=== PATIENT | male | born 1935 | race Caucasian/White ===

== ENCOUNTER 2017-06-20 12:34 | Emergency (ER) | payer MEDICARE, BC ==
[2017-06-20 12:44] VITALS: BP 134/92
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
== END 2017-06-20 13:34 | disposition home or self-care (01) ==
LOC: JD.ED 12:34
DX: S51.811A Laceration without foreign body of right forearm, initial encounter (principal); I11.0 Hypertensive heart disease with heart failure; I50.9 Heart failure, unspecified; E78.00 Pure hypercholesterolemia, unspecified; I25.2 Old myocardial infarction; I25.810 Atherosclerosis of coronary artery bypass graft(s) without angina pectoris; W22.8XXA Striking against or struck by other objects, initial encounter; Z79.82 Long term (current) use of aspirin; Z79.899 Other long term (current) drug therapy
CPT/HCPCS: 99283

== ENCOUNTER 2017-06-22 18:19 | Emergency (ER) | payer MEDICARE, BC ==
[2017-06-22 18:40] VITALS: BP 152/86
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
--- NOTE | 2017-06-23 10:19 | CT ---
Head CT Technique: Multiple axial sections through the brain were obtained. Intravenous contrast was not utilized. Comparison: Prior head CT study of 09/28/15. Findings: Ventricles along the basal cisterns and sulci over the convexities are moderately prominent. Diminished density noted within the periventricular and subcortical white matter which is compatible with small vessel ischemic demyelination change. Atherosclerotic calcification is seen within the vertebral vessels and within the carotid siphon. No evidence of intracranial hemorrhage. No midline shift or mass effect is seen. Bone window setting show no acute calvarial abnormality. Visualized sinuses are clear. Impression: 1. Senescent change as noted above. 2. No acute intracranial abnormality is identified. Diagnostic code #2 I agree with preliminary report from [facility], finalized at 06/22/17, 10:12 PM Central Time
--- NOTE | 2017-06-23 10:19 | CR ---
Left shoulder: Three views of the left shoulder were obtained. Comparison: No prior shoulder exam. Bilateral superior and inferior spurring is noted within the acromioclavicular joint with mild adjacent soft tissue calcification. Glenohumeral joint appears within normal limits. No fracture or other bony abnormality is seen. Previous sternotomy incidentally noted. Atherosclerotic change is seen within the aorta. Degenerative spurring seen within the visualized thoracic spine. Impression: 1. Degenerative change as noted above. 2. Nothing acute is identified. Diagnostic code #2
--- NOTE | 2017-06-23 10:19 | CT ---
CT cervical spine Technique: Multiple axial sections were obtained from above C1 inferiorly to the top of T2. Reconstructed sagittal and coronal images were reviewed. Comparison: No prior cervical spine exam. Findings: Diffuse posterior disc bulging with calcification seen at C3-C4, C4-C5, C5-C6 and C6-C7. Mild disc space narrowing is seen posteriorly at C3-C4 and C4-C5. Diffuse disc space narrowing is noted at C5-C6. Mild scattered endplate osteophytes are seen. Diffuse degenerative change is seen within the apophyseal joints. Calcification is seen within the posterior transverse ligament at the C1-C2 articulation. Mild right sided neural foraminal stenosis is noted at C2-C3. Moderate right sided neural foraminal stenosis is noted at C3-C4 with mild left-sided neural foraminal stenosis at C3-C4. Moderate bilateral neural foraminal stenosis noted at C4-C5 and C5-C6. Other neural foramina are patent. No bony central canal stenosis is seen. Incidental ligamentum nuchal calcification is seen. No fracture is seen. Degenerative change is seen within the uncovertebral joints at C3-C4, C4-C5 and C5-C6. Impression: 1. Diffuse degenerative change. 2. Nothing acute is appreciated on CT study of the cervical spine. Diagnostic code #2 I agree with preliminary report from [facility], finalized at 06/22/17, 10:11 PM Central Time
== END 2017-06-22 21:50 | disposition home or self-care (01) ==
LOC: JD.ED 18:19
DX: S16.1XXA Strain of muscle, fascia and tendon at neck level, initial encounter (principal); S80.12XA Contusion of left lower leg, initial encounter; M25.512 Pain in left shoulder; I11.0 Hypertensive heart disease with heart failure; I50.9 Heart failure, unspecified; I25.2 Old myocardial infarction; Z79.01 Long term (current) use of anticoagulants; Z79.899 Other long term (current) drug therapy; Z79.82 Long term (current) use of aspirin; X58.XXXA Exposure to other specified factors, initial encounter
CPT/HCPCS: 36415; 70450; 70450-26; 72125; 72125-26; 73030-26-LT; 73030-LT; 85610; 99283; 99284-25

== ENCOUNTER 2018-07-05 03:38 | Observation (INO) | payer MEDICARE, BC ==
--- NOTE | 2018-07-05 04:08 | EDM.PDOC ---
ED HPI GENERAL MEDICAL PROBLEM - General Chief Complaint: Neurological Problem Stated Complaint: AMBULANCE Time Seen by Provider: 07/05/18 03:49 Source of Information: Reports: Patient, Family ( + son), RN Notes Reviewed History Limitations: Reports: Altered Mental Status - History of Present Illness INITIAL COMMENTS - FREE TEXT/NARRATIVE: According to the patient's , the patient went to bed around 21:30, and at that time was at his neurologic baseline. The patient has a history of dementia , with symptoms worse in the evening. The patient's states that she heard the patient fall onto the floor around 02:30 this morning, when she went to check on him, he was confused, repeatedly asking where he was. Here in the ED, he is hemodynamically stable, but repeatedly saying that he needs to use the restroom "real bad". He has some difficulty understanding some commands, but is able to cooperate with the majority of a neurologic exam. According to the patient's , the patient has not recently complained of fever, chills, cough, chest pain, shortness of breath, nausea, vomiting, constipation, diarrhea, or abdominal pain. The patient's PCP is Dr. Suresh Arnold. - Related Data Allergies Allergy/AdvReac Type Severity Reaction Status Date / Time No Known Allergies Allergy Verified 07/05/18 03:52 Home Meds: Home Meds Lisinopril [Zestril] 20 mg PO DAILY 07/20/13 [History] Potassium Chloride 20 meq PO BID 07/20/13 [History] atorvaSTATin Calcium [Atorvastatin Calcium] 40 mg PO BEDTIME 07/20/13 [History] azaTHIOprine [Imuran] 150 mg PO DAILY 07/20/13 [History] cloNIDine [Catapres TTS-2] 0.2 mg TOP ASDIRECTED 07/20/13 [History] cycloSPORINE [SandIMMUNE] 0.8 ml PO Q12H 07/20/13 [History] Warfarin [Coumadin] 10 mg PO DAILY 06/22/17 [History] Ferrous Sulfate [Slow Release Iron] 160 mg PO DAILY 07/05/18 [History] Furosemide 40 mg PO DAILY 07/05/18 [History] hydroCHLOROthiazide [Hydrochlorothiazide] 25 mg PO DAILY 07/05/18 [History] traMADol [Ultram] 50 mg PO QID PRN 07/05/18 [History] valACYclovir HCl [valACYclovir] 500 mg PO BID 07/05/18 [History] Past Medical History HEENT History: Reports: Hard of Hearing, Impaired Vision Other HEENT History: bilateral hearing aides, wears eyeglasses Cardiovascular History: Reports: High Cholesterol, Hypertension, Other (See Below) ([place] heart with CAD/[place], and CHF, status post heart transplant) Musculoskeletal History: Reports: Back Pain, Chronic, Osteoporosis Neurological History: Reports: 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), Other (See Below) (Dementia) Immunologic History: Reports: Immunosuppression, Solid Organ Transplant (heart) Oncologic (Cancer) History: Reports: Basal Cell Carcinoma, Breast, Prostate ( metastatic, s/p radiation seeding, RTx), Squamous Cell Carcinoma Dermatologic History: Reports: Other (See Below) Other Dermatologic History: skin CA - Infectious Disease History Infectious Disease History: Reports: Chicken Pox, Measles, Mumps, Rheumatic Fever, Shingles (April 2018) - Past Surgical History HEENT Surgical History: Reports: Cataract Surgery, Tonsillectomy Cardiovascular Surgical History: Reports: Coronary Artery Bypass (x 4 vessel, x 2, on [place] heart), Other (See Below) (Heart transplant 1996) GI Surgical History: Reports: Appendectomy, Cholecystectomy, Colonoscopy Musculoskeletal Surgical History: Reports: Knee Replacement (bilateral) Oncologic Surgical History: Reports: Other (See Below) (Prostate seeding) Dermatological Surgical History: Reports: Skin Biopsy Social & Family History - Tobacco Use Packs/Tins Daily: 2 Month/Year Tobacco Last Used: Quit 1968 - Caffeine Use Caffeine Use: Reports: Coffee, Soda - Alcohol Use Alcohol Use History: No - Recreational Drug Use Recreational Drug Use: No - Living Situation & Occupation Living situation: Reports: , with Spouse Occupation: Retired ED ROS GENERAL - Review of Systems Review Of Systems: ROS reveals no pertinent complaints other than HPI. - Physical Exam Exam: See Below Exam Limited By: No Limitations General Appearance: Alert, No Apparent Distress Eye Exam: Bilateral Eye: EOMI, Normal Inspection Ears: Normal External Exam, Hearing Loss Nose: Normal Inspection Throat/Mouth: Normal Inspection, Normal Lips, No Airway Compromise, Other ( Halitosis) Head Exam: Atraumatic, Normocephalic Neck: Normal Inspection, Full Range of Motion Respiratory/Chest: No Respiratory Distress, Lungs Clear, Normal Breath Sounds, No Accessory Muscle Use Cardiovascular: Normal Peripheral Pulses, Regular Rate, Rhythm, No Edema, No Gallop, No JVD, No Murmur, No Rub GI/Abdominal: Normal Bowel Sounds, Soft, No Organomegaly, No Distention, No Abnormal Bruit, No Mass, Tender (Suprapubic only. Nontender elsewhere.) (Male) Exam: Deferred Rectal (Males) Exam: Deferred Neuro Exam (Abbreviated): CN II-XII Intact, No Motor/Sensory Deficits, Confused Back Exam: Normal Inspection, Full Range of Motion, NT Extremities: Normal Inspection, Normal Range of Motion, No Pedal Edema, Normal Capillary Refill Skin Exam: Warm, Dry, Intact, Normal Color, No Rash EKG INTERPRETATION EKG Date: 07/05/18 Time: 03:47 Rhythm: NSR Rate (Beats/Min): 69 Lane: Normal P-Wave: Present QRS: Normal (Late transition) ST-T: Normal QT: Normal Comparison: No Change (from 02/06/2018, which was interpreted as A-fib, but is in fact NSR) Course - Vital Signs Last Recorded V/S: Last Vital Signs Temp 36.2 C 07/05/18 03:46 Pulse 68 07/05/18 03:46 Resp 21 H 07/05/18 03:46 BP 149/92 H 07/05/18 03:46 Pulse Ox 98 07/05/18 03:46 - Orders/Labs/Meds Orders: Active Orders 24 hr Category Date Time Status Admission Status [Patient Status] [ADT] Routine ADT 07/05/18 06:01 Active EKG Documentation Completion [RC] STAT Care 07/05/18 04:00 Active Chest 1V Frontal [CR] Stat Exams 07/05/18 04:00 Taken Head wo Cont [CT] Stat Exams 07/05/18 05:34 Taken CULTURE BLOOD [BC] Stat Lab 07/05/18 04:20 Received CULTURE BLOOD [BC] Stat Lab 07/05/18 04:28 Received Blood Culture x2 Reflex Set [OM.PC] Stat Oth 07/05/18 04:00 Ordered Labs: Laboratory Tests 07/05/18 07/05/18 07/05/18 Range/Units 04:00 04:10 04:20 WBC 3.55 L (4.23-9.07) K/mm3 RBC 3.47 L (4.63-6.08) M/mm3 Hgb 10.5 L (13.7-17.5) gm/L Hct 32.7 L (40.1-51.0) % MCV 94.2 H (79.0-92.2) fl MCH 30.3 (25.7-32.2) pg MCHC 32.1 L (32.2-35.5) g/dl RDW Std Deviation 55.6 H (35.1-43.9) fL Plt Count 344 H (163-337) K/mm3 MPV 8.7 L (9.4-12.3) fl Neutrophils % (Manual) 61 H (40-60) % Band Neutrophils % 0 (0-10) % Lymphocytes % (Manual) 25 (20-40) % Atypical Lymphs % 0 % Monocytes % (Manual) 11 H (2-10) % Eosinophils % (Manual) 3 (0.8-7.0) % Basophils % (Manual) 0 L (0.2-1.2) Platelet Estimate Adequate RBC Morph Comment Normal PT (9.5-12.1) SECONDS INR Puncture Site Rt radial ABG pH 7.38 (7.35-7.45) ABG pCO2 38.7 (35.0-45.0) mmHg ABG pO2 73.0 L (80.0-100.0) mmHg ABG HCO3 22.2 (22.0-26.0) meq/L ABG O2 Saturation 94.7 L (96.0-97.0) % ABG Base Excess -2.2 L (-2-2.0) Tom Test Positive A-a Gradient 13 mmHg O2 Delivery Device Room air FiO2 21.00 (21.00-100.00) % Sodium (136-145) mEq/L Potassium (3.5-5.1) mEq/L Chloride (98-107) mEq/L Carbon Dioxide (21-32) mEq/L Anion Gap (5-15) BUN (7-18) mg/dL Creatinine (0.7-1.3) mg/dL Est Cr Clr Drug Dosing mL/min Estimated GFR (MDRD) (>60) mL/min BUN/Creatinine Ratio (14-18) Glucose (83-115) mg/dL Lactic Acid (0.4-2.0) mmol/L Calcium (8.5-10.1) mg/dL Magnesium (1.8-2.4) mg/dl Total Bilirubin (0.2-1.0) mg/dL AST (15-37) U/L ALT (16-63) U/L Alkaline Phosphatase (46-116) U/L Troponin I (0.00-0.056) ng/mL Total Protein (6.4-8.2) g/dl Albumin (3.4-5.0) g/dl Globulin gm/dL Albumin/Globulin Ratio (1-2) Urine Color Yellow (Yellow) Urine Appearance Clear (Clear) Urine pH 6.5 (5.0-8.0) Ur Specific [place] 1.015 (1.005-1.030) Urine Protein Negative (Negative) Urine Glucose (UA) Negative (Negative) Urine Ketones Negative (Negative) Urine Occult Blood Negative (Negative) Urine Nitrite Negative (Negative) Urine Bilirubin Negative (Negative) Urine Urobilinogen 0.2 (0.2-1.0) Ur Leukocyte Esterase Negative (Negative) Urine RBC 0-5 (0-5) /hpf Urine WBC 0-5 (0-5) /hpf Ur Epithelial Cells 0-5 (0-5) /hpf Urine Bacteria Few (FEW) /hpf Urine Mucus Rare (FEW) /hpf 07/05/18 07/05/18 07/05/18 Range/Units 04:20 04:20 04:20 WBC (4.23-9.07) K/mm3 RBC (4.63-6.08) M/mm3 Hgb (13.7-17.5) gm/L Hct (40.1-51.0) % MCV (79.0-92.2) fl MCH (25.7-32.2) pg MCHC (32.2-35.5) g/dl RDW Std Deviation (35.1-43.9) fL Plt Count (163-337) K/mm3 MPV (9.4-12.3) fl Neutrophils % (Manual) (40-60) % Band Neutrophils % (0-10) % Lymphocytes % (Manual) (20-40) % Atypical Lymphs % % Monocytes % (Manual) (2-10) % Eosinophils % (Manual) (0.8-7.0) % Basophils % (Manual) (0.2-1.2) Platelet Estimate RBC Morph Comment PT 13.7 H D (9.5-12.1) SECONDS INR 1.26 Puncture Site ABG pH (7.35-7.45) ABG pCO2 (35.0-45.0) mmHg ABG pO2 (80.0-100.0) mmHg ABG HCO3 (22.0-26.0) meq/L ABG O2 Saturation (96.0-97.0) % ABG Base Excess (-2-2.0) Tom Test A-a Gradient mmHg O2 Delivery Device FiO2 (21.00-100.00) % Sodium 139 (136-145) mEq/L Potassium 4.2 (3.5-5.1) mEq/L Chloride 106 (98-107) mEq/L Carbon Dioxide 23 (21-32) mEq/L Anion Gap 14.2 (5-15) BUN 35 H (7-18) mg/dL Creatinine 1.5 H (0.7-1.3) mg/dL Est Cr Clr Drug Dosing 30.70 mL/min Estimated GFR (MDRD) 45 (>60) mL/min BUN/Creatinine Ratio 23.3 H (14-18) Glucose 100 (83-115) mg/dL Lactic Acid 0.8 (0.4-2.0) mmol/L Calcium 9.2 (8.5-10.1) mg/dL Magnesium 2.1 (1.8-2.4) mg/dl Total Bilirubin 1.0 (0.2-1.0) mg/dL AST 20 (15-37) U/L ALT 14 L (16-63) U/L Alkaline Phosphatase 51 (46-116) U/L Troponin I < 0.017 (0.00-0.056) ng/mL Total Protein 6.8 (6.4-8.2) g/dl Albumin 3.5 (3.4-5.0) g/dl Globulin 3.3 gm/dL Albumin/Globulin Ratio 1.1 (1-2) Urine Color (Yellow) Urine Appearance (Clear) Urine pH (5.0-8.0) Ur Specific [place] (1.005-1.030) Urine Protein (Negative) Urine Glucose (UA) (Negative) Urine Ketones (Negative) Urine Occult Blood (Negative) Urine Nitrite (Negative) Urine Bilirubin (Negative) Urine Urobilinogen (0.2-1.0) Ur Leukocyte Esterase (Negative) Urine RBC (0-5) /hpf Urine WBC (0-5) /hpf Ur Epithelial Cells (0-5) /hpf Urine Bacteria (FEW) /hpf Urine Mucus (FEW) /hpf - Re-Assessments/Exams Free Text/Narrative Re-Assessment/Exam: 07/05/18 04:03 Although the patient has a history of dementia, he developed relatively sudden onset confusion, yet his neurologic exam here in the ED appears to be intact, indicating a metabolic cause. He repeatedly says that he needs to use the bathroom, by which he seems to mean that he needs to urinate. I anticipate that he has a UTI causing his altered mental status. I have ordered a workup that includes an ECG, a chest x-ray, blood work, an ABG, blood cultures, and, of course, a urinalysis. 07/05/18 04:51 Portable chest radiograph reviewed. The cardiac silhouette is within normal limits. No pulmonary vascular congestion or visible pleural effusions to suggest decompensated CHF. No focal infiltrate. No pneumothorax. Sternotomy wires incidentally noted. Formal read per the Radiologist pending. 07/05/18 05:31 The CBC is remarkable for a WBC count low at 3.55, mild anemia, and mild thrombocytosis. The CMP is remarkable for a BUN/Cr of 35/1.5, and is otherwise unremarkable. The magnesium level is normal. The troponin is undetectably low. The lactic acid is normal. The INR is subtherapeutic at 1.26. The ABG shows no significant acid base disturbance, with normal oxygenation while on supplemental oxygen. The urinalysis is completely normal. Test results discussed with the patient's family. The cause of the patient's confusion is unknown. It could be that his dementia tonight is worse than usual , but it does not appear to be due to an infectious cause. I recommended placement and observation, and they agreed. Case then discussed with Dr. Mcnally at 05:29. He agreed to place the patient into observation. 07/05/18 06:07 CT of the head without contrast is read by [facility] as "No CT evidence for acute intracranial abnormality or significant change since 06/22/17." Departure - Departure Time of Disposition: 05:34 Disposition: Refer to Observation Condition: Good Clinical Impression: Confusion - Discharge Information *PRESCRIPTION DRUG MONITORING PROGRAM REVIEWED*: Not Applicable *COPY OF PRESCRIPTION DRUG MONITORING REPORT IN PATIENT DONNA: Not Applicable Referrals: Suresh Arnold MD [Physician] - - My Orders Last 24 Hours: My Active Orders 07/05/18 04:00 EKG Documentation Completion [RC] STAT Chest 1V Frontal [CR] Stat Blood Culture x2 Reflex Set [OM.PC] Stat 07/05/18 04:20 CULTURE BLOOD [BC] Stat 07/05/18 04:28 CULTURE BLOOD [BC] Stat 07/05/18 05:34 Head wo Cont [CT] Stat 07/05/18 06:01 Admission Status [Patient Status] [ADT] Routine - Assessment/Plan Last 24 Hours: My Active Orders 07/05/18 04:00 EKG Documentation Completion [RC] STAT Chest 1V Frontal [CR] Stat Blood Culture x2 Reflex Set [OM.PC] Stat 07/05/18 04:20 CULTURE BLOOD [BC] Stat 07/05/18 04:28 CULTURE BLOOD [BC] Stat 07/05/18 05:34 Head wo Cont [CT] Stat 07/05/18 06:01 Admission Status [Patient Status] [ADT] Routine
--- NOTE | 2018-07-05 06:49 | PCM.HP ---
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 He does have a history of dementia and she notes his symptoms are usually worse in the evening. Around 2: 30 in the morning she heard a fall and went to check on him. She found him on the ground and unable to get up, confused, and repeatedly asking where he was. In the ED is hemodynamically stable but continues to state he needs to use the restroom "real bad". He does have difficulty understanding some commands but is able to cooperate with the majority of the neurological exam. reports he has not been complaining of any fever, chills, cough, chest pain, short of breath, nausea, vomiting, constipation, diarrhea, or abdominal pain. In the ED temperature 36.2 Celsius. Pulse 68. Respirations 21. Blood pressure slightly elevated 149/92. Obtained noting a sinus rhythm at 69 beats per minutes with late transition QRS. Labs are obtained: WBC is low at 3.55. Hemoglobin low at 10.5. Hematocrit low at 32.7. He is a crescentic. Both are elevated at 344,000. Neutrophils are elevated at 61%. There is no bandemia. ABGs obtain the right radial showing a pH of 7.38. PCO2 38.7. PO2 of 73.0. HCO3 of 22.2. Oxygen saturation of 94.7. PT is 13.7. INR is 1.26. Sodium is 139. Potassium 4.2. Chloride 106. Carbon monoxide 23. Anion gap is 14.2. BUN is high at 35. Creatinine is high at 1.5. EGFR is 45. Glucose is 100. Lactic acid 0.8. Calcium 9.2. Magnesium 2.1. Bilirubin 1.0. AST is 20, ALT 14, alkaline phosphatase 51. Troponin is negative at less than 0.017. Protein is good at 6.8. Albumin 3.5. UA is negative. x-rays obtained and interpreted the ED provider as showing nothing acute. Formal radiologist read is still pending. Head CT without contrast is obtained and interpreted by [facility] as And shows no acute intracranial abnormality or significant change from 07/02/17. 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 His PCP is Dr. Arnold. His Pan Operator is Dr. Lopez. He is subsequently admitted to the floor observation status with telemetry for CVA workup. He is a full code. - Related Data Allergies/Adverse Reactions: Allergies Allergy/AdvReac Type Severity Reaction Status Date / Time No Known Allergies Allergy Verified 07/05/18 03:52 Home Medications: Home Meds Lisinopril [Zestril] 20 mg PO DAILY 07/20/13 [History] Potassium Chloride 20 meq PO BID 07/20/13 [History] atorvaSTATin Calcium [Atorvastatin Calcium] 80 mg PO BEDTIME 07/20/13 [History] azaTHIOprine [Imuran] 125 mg PO DAILY 07/20/13 [History] cloNIDine [Catapres TTS-2] 0.2 mg TOP ASDIRECTED 07/20/13 [History] cycloSPORINE [SandIMMUNE] 0.8 ml PO Q12H 07/20/13 [History] Warfarin [Coumadin] 7.5 mg PO MOWEFR 06/22/17 [History] Ferrous Sulfate [Slow Release Iron] 160 mg PO DAILY 07/05/18 [History] Furosemide 40 mg PO DAILY 07/05/18 [History] Warfarin [Coumadin] 5 mg PO SUTUTHSA 07/05/18 [History] amLODIPine [Norvasc] 5 mg PO BEDTIME 07/05/18 [History] traMADol [Ultram] 50 mg PO QID PRN 07/05/18 [History] valACYclovir HCl [valACYclovir] 500 mg PO BID 07/05/18 [History] Past Medical History HEENT History: Reports: Hard of Hearing, Impaired Vision Other HEENT History: bilateral hearing aides, wears eyeglasses Cardiovascular History: Reports: High Cholesterol, Hypertension, Other (See Below) ([place] heart with CAD/GA, and CHF, status post heart transplant) Genitourinary History: Reports: Prostate Disorder Musculoskeletal History: Reports: Back Pain, Chronic, Osteoporosis Neurological History: Reports: 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), Other (See Below) (Dementia) Psychiatric History: Reports: Dementia Hematologic History: Reports: Iron Deficiency, Other (See Below) Other Hematologic History: Fe infusion 2x a week Immunologic History: Reports: Immunosuppression, Solid Organ Transplant (heart) Oncologic (Cancer) History: Reports: Basal Cell Carcinoma, Breast, Prostate ( metastatic, s/p radiation seeding, RTx), Squamous Cell Carcinoma Dermatologic History: Reports: Other (See Below) Other Dermatologic History: skin CA - Infectious Disease History Infectious Disease History: Reports: Chicken Pox, Measles, Mumps, Rheumatic Fever, Shingles (April 2018) - Past Surgical History HEENT Surgical History: Reports: Cataract Surgery, Tonsillectomy Cardiovascular Surgical History: Reports: Coronary Artery Bypass (x 4 vessel, x 2, on ak chin heart), Other (See Below) (Heart transplant 1996) GI Surgical History: Reports: Appendectomy, Cholecystectomy, Colonoscopy Musculoskeletal Surgical History: Reports: Knee Replacement (bilateral) Oncologic Surgical History: Reports: Other (See Below) (Prostate seeding) Dermatological Surgical History: Reports: Skin Biopsy Social & Family History - Tobacco Use Smoking Status *Q: Former Smoker Packs/Tins Daily: 2 Used Tobacco, but Quit: Yes Month/Year Tobacco Last Used: Quit 1968 - Caffeine Use Caffeine Use: Reports: Coffee, Soda - Recreational Drug Use Recreational Drug Use: No - Living Situation & Occupation Living situation: Reports: , with Spouse Occupation: Retired H&P Review of Systems - Review of Systems: Review Of Systems: See Below General: Reports: No Symptoms. Denies: Fever, Chills, Malaise, Weakness, Fatigue HEENT: Reports: No Symptoms. Denies: Headaches, Sore Throat, Visual Changes Pulmonary: Reports: No Symptoms. Denies: Shortness of Breath, Wheezing, Cough, Sputum Cardiovascular: Reports: No Symptoms. Denies: Edema Gastrointestinal: Reports: No Symptoms. Denies: Abdominal Pain, Constipation, Diarrhea, Nausea, Vomiting Genitourinary: Reports: No Symptoms. Denies: Pain Musculoskeletal: Reports: No Symptoms Skin: Reports: No Symptoms. Denies: Cyanosis Psychiatric: Reports: Confusion (mild - baseline ) Neurological: Reports: No Symptoms Hematologic/Lymphatic: Reports: No Symptoms Immunologic: Reports: No Symptoms Exam - Exam Exam: See Below - Vital Signs Vital Signs: Last Vital Signs Temp 97.2 F 07/05/18 03:46 Pulse 68 07/05/18 03:46 Resp 21 H 07/05/18 03:46 BP 149/92 H 07/05/18 03:46 Pulse Ox 98 07/05/18 03:46 Weight: 140 lb - Exam Quality Assessment: DVT Prophylaxis General: Alert, Oriented (to person and place, confused on time/year/date), Cooperative. No: Mild Distress HEENT: Conjunctiva Clear, EACs Clear, EOMI, Hearing Intact, Mucosa Moist & Klahr , Nares Patent, PERRLA Neck: Supple, Trachea Midline Lungs: Clear to Auscultation, Normal Respiratory Effort Cardiovascular: Regular Rate, Regular Rhythm GI/Abdominal Exam: Normal Bowel Sounds, Soft, Non-Tender, No Organomegaly, No Distention, No Abnormal Bruit (Male) Exam: Deferred Rectal (Males) Exam: Deferred Back Exam: Normal Inspection, Full Range of Motion Extremities: Normal Inspection, Normal Range of Motion, Non-Tender, No Pedal Edema, Normal Capillary Refill Peripheral Pulses: 2+: Radial (L), Radial (R), Dorsalis Pedis (L), Dorsalis Pedis (R) Skin: Warm, Dry, Intact Neurological: Cranial Nerves Intact Neuro Extensive - Mental Status: Alert, Oriented x3, Normal Mood/Affect, Normal Cognition Psychiatric: Alert, Normal Affect, Normal Mood - Patient Data Lab Results Last 24 hrs: Laboratory Results - last 24 hr 07/05/18 07/05/18 07/05/18 Range/Units 04:00 04:10 04:20 WBC 3.55 L (4.23-9.07) K/mm3 RBC 3.47 L (4.63-6.08) M/mm3 Hgb 10.5 L (13.7-17.5) gm/L Hct 32.7 L (40.1-51.0) % MCV 94.2 H (79.0-92.2) fl MCH 30.3 (25.7-32.2) pg MCHC 32.1 L (32.2-35.5) g/dl RDW Std Deviation 55.6 H (35.1-43.9) fL Plt Count 344 H (163-337) K/mm3 MPV 8.7 L (9.4-12.3) fl Neutrophils % (Manual) 61 H (40-60) % Band Neutrophils % 0 (0-10) % Lymphocytes % (Manual) 25 (20-40) % Atypical Lymphs % 0 % Monocytes % (Manual) 11 H (2-10) % Eosinophils % (Manual) 3 (0.8-7.0) % Basophils % (Manual) 0 L (0.2-1.2) Platelet Estimate Adequate RBC Morph Comment Normal PT (9.5-12.1) SECONDS INR Puncture Site Rt radial ABG pH 7.38 (7.35-7.45) ABG pCO2 38.7 (35.0-45.0) mmHg ABG pO2 73.0 L (80.0-100.0) mmHg ABG HCO3 22.2 (22.0-26.0) meq/L ABG O2 Saturation 94.7 L (96.0-97.0) % ABG Base Excess -2.2 L (-2-2.0) Tom Test Positive A-a Gradient 13 mmHg O2 Delivery Device Room air FiO2 21.00 (21.00-100.00) % Sodium (136-145) mEq/L Potassium (3.5-5.1) mEq/L Chloride (98-107) mEq/L Carbon Dioxide (21-32) mEq/L Anion Gap (5-15) BUN (7-18) mg/dL Creatinine (0.7-1.3) mg/dL Est Cr Clr Drug Dosing mL/min Estimated GFR (MDRD) (>60) mL/min BUN/Creatinine Ratio (14-18) Glucose (83-115) mg/dL Lactic Acid (0.4-2.0) mmol/L Calcium (8.5-10.1) mg/dL Magnesium (1.8-2.4) mg/dl Total Bilirubin (0.2-1.0) mg/dL AST (15-37) U/L ALT (16-63) U/L Alkaline Phosphatase (46-116) U/L Troponin I (0.00-0.056) ng/mL Total Protein (6.4-8.2) g/dl Albumin (3.4-5.0) g/dl Globulin gm/dL Albumin/Globulin Ratio (1-2) Urine Color Yellow (Yellow) Urine Appearance Clear (Clear) Urine pH 6.5 (5.0-8.0) Ur Specific [place] 1.015 (1.005-1.030) Urine Protein Negative (Negative) Urine Glucose (UA) Negative (Negative) Urine Ketones Negative (Negative) Urine Occult Blood Negative (Negative) Urine Nitrite Negative (Negative) Urine Bilirubin Negative (Negative) Urine Urobilinogen 0.2 (0.2-1.0) Ur Leukocyte Esterase Negative (Negative) Urine RBC 0-5 (0-5) /hpf Urine WBC 0-5 (0-5) /hpf Ur Epithelial Cells 0-5 (0-5) /hpf Urine Bacteria Few (FEW) /hpf Urine Mucus Rare (FEW) /hpf 07/05/18 07/05/18 07/05/18 Range/Units 04:20 04:20 04:20 WBC (4.23-9.07) K/mm3 RBC (4.63-6.08) M/mm3 Hgb (13.7-17.5) gm/L Hct (40.1-51.0) % MCV (79.0-92.2) fl MCH (25.7-32.2) pg MCHC (32.2-35.5) g/dl RDW Std Deviation (35.1-43.9) fL Plt Count (163-337) K/mm3 MPV (9.4-12.3) fl Neutrophils % (Manual) (40-60) % Band Neutrophils % (0-10) % Lymphocytes % (Manual) (20-40) % Atypical Lymphs % % Monocytes % (Manual) (2-10) % Eosinophils % (Manual) (0.8-7.0) % Basophils % (Manual) (0.2-1.2) Platelet Estimate RBC Morph Comment PT 13.7 H D (9.5-12.1) SECONDS INR 1.26 Puncture Site ABG pH (7.35-7.45) ABG pCO2 (35.0-45.0) mmHg ABG pO2 (80.0-100.0) mmHg ABG HCO3 (22.0-26.0) meq/L ABG O2 Saturation (96.0-97.0) % ABG Base Excess (-2-2.0) Tom Test A-a Gradient mmHg O2 Delivery Device FiO2 (21.00-100.00) % Sodium 139 (136-145) mEq/L Potassium 4.2 (3.5-5.1) mEq/L Chloride 106 (98-107) mEq/L Carbon Dioxide 23 (21-32) mEq/L Anion Gap 14.2 (5-15) BUN 35 H (7-18) mg/dL Creatinine 1.5 H (0.7-1.3) mg/dL Est Cr Clr Drug Dosing 30.70 mL/min Estimated GFR (MDRD) 45 (>60) mL/min BUN/Creatinine Ratio 23.3 H (14-18) Glucose 100 (83-115) mg/dL Lactic Acid 0.8 (0.4-2.0) mmol/L Calcium 9.2 (8.5-10.1) mg/dL Magnesium 2.1 (1.8-2.4) mg/dl Total Bilirubin 1.0 (0.2-1.0) mg/dL AST 20 (15-37) U/L ALT 14 L (16-63) U/L Alkaline Phosphatase 51 (46-116) U/L Troponin I < 0.017 (0.00-0.056) ng/mL Total Protein 6.8 (6.4-8.2) g/dl Albumin 3.5 (3.4-5.0) g/dl Globulin 3.3 gm/dL Albumin/Globulin Ratio 1.1 (1-2) Urine Color (Yellow) Urine Appearance (Clear) Urine pH (5.0-8.0) Ur Specific [place] (1.005-1.030) Urine Protein (Negative) Urine Glucose (UA) (Negative) Urine Ketones (Negative) Urine Occult Blood (Negative) Urine Nitrite (Negative) Urine Bilirubin (Negative) Urine Urobilinogen (0.2-1.0) Ur Leukocyte Esterase (Negative) Urine RBC (0-5) /hpf Urine WBC (0-5) /hpf Ur Epithelial Cells (0-5) /hpf Urine Bacteria (FEW) /hpf Urine Mucus (FEW) /hpf Result Diagrams: 07/05/18 04:20 07/05/18 04:20 - Problem List (1) CVA (cerebral vascular accident) SNOMED Code(s): 423896113 ICD Code: I63.9 - CEREBRAL INFARCTION, UNSPECIFIED Status: Acute Priority : High Current Visit: Yes Qualifiers: CVA mechanism: unspecified Qualified Code(s): I63.9 - Cerebral infarction, unspecified (2) Subtherapeutic international normalized ratio (INR) SNOMED Code(s): 156771882, 368407712 ICD Code: R79.1 - ABNORMAL COAGULATION PROFILE Status: Acute Priority: High Current Visit: Yes (3) Dislocation of right patella SNOMED Code(s): 246732034 ICD Code: S83.004A - UNSPECIFIED DISLOCATION OF RIGHT PATELLA, INITIAL ENCOUNTER Status: Chronic Priority: Medium Current Visit: No Qualifiers: Encounter type: initial encounter Qualified Code(s): S83.004A - Unspecified dislocation of right patella, initial encounter (4) Dementia SNOMED Code(s): 65579652 ICD Code: F03.90 - UNSPECIFIED DEMENTIA WITHOUT BEHAVIORAL DISTURBANCE Status: Chronic Priority: Medium Current Visit: Yes Qualifiers: Dementia type: unspecified type Dementia behavioral disturbance: without behavioral disturbance Qualified Code(s): F03.90 - Unspecified dementia without behavioral disturbance (5) Status post heart transplant Status: Chronic Priority: High Current Visit: Yes (6) HLD (hyperlipidemia) SNOMED Code(s): 32231697 ICD Code: E78.5 - HYPERLIPIDEMIA, UNSPECIFIED Status: Chronic Priority: Medium Current Visit: No Qualifiers: Hyperlipidemia type: unspecified Qualified Code(s): E78.5 - Hyperlipidemia , unspecified (7) HTN (hypertension) SNOMED Code(s): 32332608 ICD Code: I10 - ESSENTIAL (PRIMARY) HYPERTENSION Status: Acute Priority: High Current Visit: Yes Qualifiers: Hypertension type: unspecified Qualified Code(s): I10 - Essential (primary ) hypertension (8) Confusion SNOMED Code(s): 579542003 ICD Code: R41.0 - DISORIENTATION, UNSPECIFIED Status: Resolved Priority: Medium Current Visit: No (9) Prostate cancer SNOMED Code(s): 412717384 ICD Code: C61 - MALIGNANT NEOPLASM OF PROSTATE Status: Chronic Priority: Low Current Visit: No (10) Breast cancer in male SNOMED Code(s): 648030977 ICD Code: C50.929 - MALIGNANT NEOPLASM OF UNSP SITE OF UNSPECIFIED MALE BREAST Status: Chronic Priority: Low Current Visit: No Qualifiers: Breast location: unspecified site of breast Estrogen receptor status: unspecified Laterality: unspecified laterality Qualified Code(s): C50.929 - Malignant neoplasm of unspecified site of unspecified male breast Problem List Initiated/Reviewed/Updated: Yes Orders Last 24hrs: Active Orders 24 hr Category Date Time Status Admission Status [Patient Status] [ADT] Routine ADT 07/05/18 06:01 Active EKG Documentation Completion [RC] STAT Care 07/05/18 04:00 Active Chest 1V Frontal [CR] Stat Exams 07/05/18 04:00 Taken Head wo Cont [CT] Stat Exams 07/05/18 05:34 Taken CULTURE BLOOD [BC] Stat Lab 07/05/18 04:20 Received CULTURE BLOOD [BC] Stat Lab 07/05/18 04:28 Received Blood Culture x2 Reflex Set [OM.PC] Stat Oth 07/05/18 04:00 Ordered Assessment/Plan Comment:: I/P: Acute: CVA -Last known well around [id number] on 07/04/18 -Found by [place]round 0230 after having fallen, very confused and unable to stand up -Hx/o prior CVA in October 2016, 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 Possible early area of infarct within the right parietal cortex. Poorly seen right carotid artery either due to slow flow or occlusion. MR angiogram study recommended of the neck vessels and [place] of [place]ails. * 2. Senescent change as noted above which appear stable from prior head CT. * 3. Incidental sinus findings. -MRA of brain 07/05/18: obtained and pending -Carotid artery US: obtained and pending -Echo: obtained and pending -Lipid panel: Triglycerides 135, total cholesterol 167, LDL 91, HDL 58. -NPO until seen by [employer] -> discontinue -[employer] swallow eval - no concerns, usual diet and thin liquids -Neuro checks QID -NIH score 0 on floor -PT/OT -Permissive HTN Subtherapeutic INR -INR 1.26 - reports he has been taking warfarin as prescribed -Pharmacy to dose warfarin -Daily INR Right knee deformity -Patella appears to be dislocated with bruising -History of frequent falls - reports she believes deformity has been present for around a month -Knee x-rays ordered -Hx/o bilateral TKA -No orthopedic coverage until next Tuesday Chronic: Hard hearing with bilateral hearing aids impaired vision HLD HTN S/P heart transplant in 1996 chronic back pain osteoporosis 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 Plan: Admit to [facility] observation status with tele Other orders as indicated above Home medications as ordered Routine AM labs PT/OT DVT prophylaxis: Home warfarin Code status: Full code; PCP: Dr. Arnold, Pan Operator: Dr. Lopez
[2018-07-05] MEDS ORDERED: Acetaminophen 325 MG Tab PO PRN (06:58)
[2018-07-05] MEDS ORDERED: Bisacodyl 5 MG Tab PO PRN (06:58)
[2018-07-05] MEDS ORDERED: Docusate Sodium 100 MG Cap PO PRN (06:58)
[2018-07-05] MEDS ORDERED: Ondansetron 4 MG/2 ML SDV IV PRN (06:58)
[2018-07-05] MEDS ORDERED: Polyethylene Glycol 3350 Powder 17 GM Packet PO PRN (06:58)
[2018-07-05] MEDS ORDERED: traMADol 50 MG Tab PO PRN (08:29)
[2018-07-05] MEDS ORDERED: VALACYCLOVIR HCL 500 MG PO SCH (09:00)
[2018-07-05] MEDS ORDERED: Non-Formulary Medication 1 Each (Hydrochlorothiazide [Hydrochlorothiazide] 25 MG) PO SCH (09:00)
[2018-07-05] MEDS ORDERED: Non-Formulary Medication 1 Each (Potassium Chloride [Potassium Chloride] 20 MEQ) PO SCH (09:00)
[2018-07-05] MEDS ORDERED: Furosemide 40 MG **PTOM PO SCH (09:00)
[2018-07-05] MEDS ORDERED: Ferrous Sulfate 160 MG TAB.ER PO SCH (09:00)
[2018-07-05] MEDS ORDERED: Lisinopril 20 MG **PTOM PO SCH (09:30)
[2018-07-05] MEDS ORDERED: CYCLOSPORINE 100 MG/ML PO SCH (10:00)
--- NOTE | 2018-07-05 11:12 | MR ---
MRI brain Technique: T1 sagittal; T2, T2 FLAIR, T1 and gradient echo axial as well as diffusion axial; T1 and gradient echo coronal images were obtained through the brain. Comparison: Prior head CT study of 06/22/17. Findings: Ventricles along with basal cisterns and sulci over the convexities are moderately prominent. Retention cyst is noted within the inferior right maxillary sinus measuring 2.4 cm. Mild nodular area of mucosal thickening is seen within the inferior left maxillary sinus. Normal signal void is seen within the basilar and left carotid artery. Right carotid artery is poorly seen which represents either occlusion or slow flow. Mild areas of increased signal are noted within the periventricular white matter compatible with small vessel ischemic demyelination change. Several areas of increased signal is noted within the helen compatible with similar etiology. No other abnormal signal is seen within the brain parenchyma. Questionable early diffusion abnormality within the right parietal cortex possibly due to very early cortical infarct. No other diffusion abnormalities are seen. Impression: 1. Possible early area of infarct within the right parietal cortex. Poorly seen right carotid artery either due to slow flow or occlusion. MR angiogram study recommended of the neck vessels and [place]. 2. Senescent change as noted above which appears stable to prior head CT. 3. Incidental sinus findings. Diagnostic code #5 Dental Practitioner called and talked to Amos Mckeon on 07/05/18 at 10:37 a.m.
--- NOTE | 2018-07-05 12:15 | PCM.DCSUM1 ---
Discharge Summary - Hospital Course HPI Initial Comments: Flaquito Goel is an 82 yo male presented to our ED in the very manager maintenance hours of 07/05/18 with a neurological problem.patient's reports he went to bed urning 05/03/29 and 05/04/29 and was doing well. He does have a history of dementia and she notes his symptoms are usually worse in the evening. Around 2: 30 in the morning she heard a fall and went to check on him. She found him on the ground and unable to get up, confused, and repeatedly asking where he was. In the ED is hemodynamically stable but continues to state he needs to use the restroom "real bad". He does have difficulty understanding some commands but is able to cooperate with the majority of the neurological exam. reports he has not been complaining of any fever, chills, cough, chest pain, short of breath, nausea, vomiting, constipation, diarrhea, or abdominal pain. In the ED temperature 36.2 Celsius. Pulse 68. Respirations 21. Blood pressure slightly elevated 149/92. Obtained noting a sinus rhythm at 69 beats per minutes with late transition QRS. Labs are obtained: WBC is low at 3.55. Hemoglobin low at 10.5. Hematocrit low at 32.7. He is a crescentic. Both are elevated at 344,000. Neutrophils are elevated at 61%. There is no bandemia. ABGs obtain the right radial showing a pH of 7.38. PCO2 38.7. PO2 of 73.0. HCO3 of 22.2. Oxygen saturation of 94.7. PT is 13.7. INR is 1.26. Sodium is 139. Potassium 4.2. Chloride 106. Carbon monoxide 23. Anion gap is 14.2. BUN is high at 35. Creatinine is high at 1.5. EGFR is 45. Glucose is 100. Lactic acid 0.8. Calcium 9.2. Magnesium 2.1. Bilirubin 1.0. AST is 20, ALT 14, alkaline phosphatase 51. Troponin is negative at less than 0.017. Protein is good at 6.8. Albumin 3.5. UA is negative. x-rays obtained and interpreted the ED provider as showing nothing acute. Formal radiologist read is still pending. Head CT without contrast is obtained and interpreted by [facility] as And shows no acute intracranial abnormality or significant change from 07/02/17. 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 His PCP is Dr. Arnold. His Roller Skates Assembler is Dr. Lopez. He is subsequently admitted to the floor observation status with telemetry for CVA workup. He is a full code. Diagnosis: Stroke: Yes Modified Nadya Scale: No Symptoms at All Modified Nadya Scale Score: 0 - Discharge Data Discharge Date: 07/05/18 (Admit date: 07/05/18) Discharge Disposition: DC/Tfer to Acute Hospital 02 Condition: Good - Discharge Diagnosis/Problem(s) (1) CVA (cerebral vascular accident) SNOMED Code(s): 458725324 ICD Code: I63.9 - CEREBRAL INFARCTION, UNSPECIFIED Status: Acute Priority : High Current Visit: Yes Qualifiers: CVA mechanism: unspecified Qualified Code(s): I63.9 - Cerebral infarction, unspecified (2) Dislocation of right patella SNOMED Code(s): 864102184 ICD Code: S83.004A - UNSPECIFIED DISLOCATION OF RIGHT PATELLA, INITIAL ENCOUNTER Status: Chronic Priority: Medium Current Visit: No Qualifiers: Encounter type: initial encounter Qualified Code(s): S83.004A - Unspecified dislocation of right patella, initial encounter (3) Dementia SNOMED Code(s): 40118903 ICD Code: F03.90 - UNSPECIFIED DEMENTIA WITHOUT BEHAVIORAL DISTURBANCE Status: Chronic Priority: Medium Current Visit: Yes Qualifiers: Dementia type: unspecified type Dementia behavioral disturbance: without behavioral disturbance Qualified Code(s): F03.90 - Unspecified dementia without behavioral disturbance (4) Status post heart transplant Status: Chronic Priority: High Current Visit: Yes (5) HLD (hyperlipidemia) SNOMED Code(s): 74944095 ICD Code: E78.5 - HYPERLIPIDEMIA, UNSPECIFIED Status: Chronic Priority: Medium Current Visit: No Qualifiers: Hyperlipidemia type: unspecified Qualified Code(s): E78.5 - Hyperlipidemia , unspecified (6) HTN (hypertension) SNOMED Code(s): 29460262 ICD Code: I10 - ESSENTIAL (PRIMARY) HYPERTENSION Status: Acute Priority: High Current Visit: Yes Qualifiers: Hypertension type: unspecified Qualified Code(s): I10 - Essential (primary ) hypertension (7) Confusion SNOMED Code(s): 037491051 ICD Code: R41.0 - DISORIENTATION, UNSPECIFIED Status: Resolved Priority: Medium Current Visit: No (8) Prostate cancer SNOMED Code(s): 189734347 ICD Code: C61 - MALIGNANT NEOPLASM OF PROSTATE Status: Chronic Priority: Low Current Visit: No (9) Breast cancer in male SNOMED Code(s): 227041602 ICD Code: C50.929 - MALIGNANT NEOPLASM OF UNSP SITE OF UNSPECIFIED MALE BREAST Status: Chronic Priority: Low Current Visit: No Qualifiers: Breast location: unspecified site of breast Estrogen receptor status: unspecified Laterality: unspecified laterality Qualified Code(s): C50.929 - Malignant neoplasm of unspecified site of unspecified male breast (10) Subtherapeutic international normalized ratio (INR) SNOMED Code(s): 068422678, 296412543 ICD Code: R79.1 - ABNORMAL COAGULATION PROFILE Status: Acute Priority: High Current Visit: Yes - Patient Summary/Data Consults: Consultations 07/05/18 06:58 Consult to Case Management/Diving Coach [CONS] Routine Consult to Spiritual Care [CONS] Routine OT Evaluation and Treatment [CONS] Routine PT Evaluation and Treatment [CONS] Routine CONVEYOR SYSTEM OPERATOR Evaluation and Treatment [CONS] Routine Labs Pending at D/C: None Hospital Course: I/P: Acute: CVA -Last known well around [id number] on 07/04/18 -Found by aground 0230 after having fallen, very confused and unable to stand up -Hx/o prior CVA in October 2016, 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 Possible early area of infarct within the right parietal cortex. Poorly seen right carotid artery either due to slow flow or occlusion. MR angiogram study recommended of the neck vessels and [place]. * 2. Senescent change as noted above which appear stable from prior head CT. * 3. Incidental sinus findings. -MRA of brain 07/05/18: obtained and pending -Carotid artery US: obtained and pending -Echo: obtained and pending -Lipid panel: Triglycerides 135, total cholesterol 167, LDL 91, HDL 58. -NPO until seen by CONVEYOR SYSTEM OPERATOR -> discontinue -CONVEYOR SYSTEM OPERATOR swallow eval - no concerns, usual diet and thin liquids -Neuro checks QID -NIH score 0 on floor -PT/OT -Permissive HTN Subtherapeutic INR -INR 1.26 - reports he has been taking warfarin as prescribed -Pharmacy to dose warfarin -Daily INR Right knee deformity -Patella appears to be dislocated with bruising -History of frequent falls per family - reports she believes deformity has been present for around a month -Knee x-rays ordered -Hx/o bilateral TKA -No orthopedic coverage until next Tuesday Chronic: Hard hearing with bilateral hearing aids impaired vision HLD HTN S/P heart transplant in 1996 chronic back pain osteoporosis 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 Plan: Admit to [facility] observation status with tele Other orders as indicated above Home medications as ordered Routine AM labs PT/OT DVT prophylaxis: Home warfarin Code status: Full code; PCP: Dr. Arnold, Roller Skates Assembler: Dr. John Huddleston presented to our ED in the manager maintenance hours of 07/05/18 after having been found down by his . He was last seen well around [id number] per his report. She reports she heard a thud around 0230 and came out to find him on the floor very confused. When he is brought in the ED he continued to have confusion although he was cooperative. He does have baseline dementia which family reports is known to be worse overnight. He does have a history of prior CVA and was seen at [facility] in [place] on September 2016 for this. He is a heart transplant patient and does follow Dr. Kc. In the ED CT scan was negative as above. Infectious workup was also negative. He was admitted to the floor for confusion and CVA workup. 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 He is on daily warfarin and his INR was found be low at 1.26. Family reports he has been taking his meds as prescribed. MRI was performed this morning showing a possible early area of infarct within the right parietal cortex as noted above. MR angiogram was suggested of the neck vessels and [place]. Discussed this with radiology of the patient's creatinine is 1.5. This does appear to be his baseline as he was 1.5 at the end of last year in our ED. They suggested obtaining a MRA of the brain but not the neck. This was ordered and had yet to be interpreted at time of dictation. echocardiogram was obtained and is pending. Carotid artery ultrasound was obtained and is pending. Lipid panel was obtained as above and is within normal limits. NIH score was 0 this AM. CONVEYOR SYSTEM OPERATOR did evaluate him and found him suitable for a regular diet and thin liquids. He was evaluated by PT and OT. Discussed findings with family and they confirmed patient is a full code and they would like him transferred if at all possible. The would prefer [facility] as this is where he has been in the past. Contacted [facility] one call and discussed case with Dr. Maldonado, neurology. She reported it is perfectly reasonable for the patient to be transferred although she will likely not have much to offer him but she will see him in consult. Report was then given to Dr. Chase, hospitalist, and after some discussion he does agree to accept the patient. He will be transferred via ALS ground ambulance to [facility]. - Patient Instructions Diet: Heart Healthy Diet - Discharge Plan *PRESCRIPTION DRUG MONITORING PROGRAM REVIEWED*: Not Applicable *COPY OF PRESCRIPTION DRUG MONITORING REPORT IN PATIENT DONNA: Not Applicable Home Medications: Home Meds Lisinopril [Zestril] 20 mg PO DAILY 07/20/13 [History] Potassium Chloride 20 meq PO BID 07/20/13 [History] atorvaSTATin Calcium [Atorvastatin Calcium] 80 mg PO BEDTIME 07/20/13 [History] azaTHIOprine [Imuran] 125 mg PO DAILY 07/20/13 [History] cloNIDine [Catapres TTS-2] 0.2 mg TOP ASDIRECTED 07/20/13 [History] cycloSPORINE [SandIMMUNE] 0.8 ml PO Q12H 07/20/13 [History] Warfarin [Coumadin] 7.5 mg PO MOWEFR 06/22/17 [History] Ferrous Sulfate [Slow Release Iron] 160 mg PO DAILY 07/05/18 [History] Furosemide 40 mg PO DAILY 07/05/18 [History] Warfarin [Coumadin] 5 mg PO SUTUTHSA 07/05/18 [History] amLODIPine [Norvasc] 5 mg PO BEDTIME 07/05/18 [History] traMADol [Ultram] 50 mg PO QID PRN 07/05/18 [History] valACYclovir HCl [valACYclovir] 500 mg PO BID 07/05/18 [History] Referrals: Suresh Arnold MD [Primary Care Provider] - - Discharge Summary/Plan Comment DC Time >30 min.: Yes (60 minutes ) - General Info Date of Service: 07/05/18 Admission Dx/Problem (Free Text: Admission Diagnosis/Problem Admission Diagnosis/Problem Confusion Functional Status: Reports: Pain Controlled, Tolerating Diet, Ambulating, Urinating. Denies: New Symptoms - Review of Systems General: Reports: No Symptoms. Denies: Fever, Weakness, Fatigue, Malaise, Chills HEENT: Reports: No Symptoms. Denies: Headaches, Sore Throat Pulmonary: Reports: No Symptoms. Denies: Shortness of Breath, Pleuritic Chest Pain, Cough, Sputum, Wheezing Cardiovascular: Reports: No Symptoms. Denies: Palpitations, Edema Gastrointestinal: Reports: No Symptoms. Denies: Abdominal Pain, Constipation, Diarrhea, Nausea, Vomiting Genitourinary: Reports: No Symptoms. Denies: Pain Musculoskeletal: Reports: No Symptoms Skin: Reports: No Symptoms Neurological: Reports: Confusion (baseline mild ) Psychiatric: Reports: No Symptoms - Patient Data Vitals - Most Recent: Last Vital Signs Temp 97.7 F 07/05/18 06:52 Pulse 73 07/05/18 06:52 Resp 18 07/05/18 06:52 BP 169/81 H 07/05/18 06:52 Pulse Ox 99 07/05/18 06:52 Weight - Most Recent: 140 lb I&O - Last 24 hours: Intake & Output 07/04/18 07/05/18 07/05/18 22:59 06:59 14:59 Intake Total 120 Balance 120 Lab Results - Last 24 hrs: Laboratory Results - last 24 hr 07/05/18 07/05/18 07/05/18 Range/Units 04:00 04:10 04:20 WBC 3.55 L (4.23-9.07) K/mm3 RBC 3.47 L (4.63-6.08) M/mm3 Hgb 10.5 L (13.7-17.5) gm/L Hct 32.7 L (40.1-51.0) % MCV 94.2 H (79.0-92.2) fl MCH 30.3 (25.7-32.2) pg MCHC 32.1 L (32.2-35.5) g/dl RDW Std Deviation 55.6 H (35.1-43.9) fL Plt Count 344 H (163-337) K/mm3 MPV 8.7 L (9.4-12.3) fl Neutrophils % (Manual) 61 H (40-60) % Band Neutrophils % 0 (0-10) % Lymphocytes % (Manual) 25 (20-40) % Atypical Lymphs % 0 % Monocytes % (Manual) 11 H (2-10) % Eosinophils % (Manual) 3 (0.8-7.0) % Basophils % (Manual) 0 L (0.2-1.2) Platelet Estimate Adequate RBC Morph Comment Normal PT (9.5-12.1) SECONDS INR Puncture Site Rt radial ABG pH 7.38 (7.35-7.45) ABG pCO2 38.7 (35.0-45.0) mmHg ABG pO2 73.0 L (80.0-100.0) mmHg ABG HCO3 22.2 (22.0-26.0) meq/L ABG O2 Saturation 94.7 L (96.0-97.0) % ABG Base Excess -2.2 L (-2-2.0) Tom Test Positive A-a Gradient 13 mmHg O2 Delivery Device Room air FiO2 21.00 (21.00-100.00) % Sodium (136-145) mEq/L Potassium (3.5-5.1) mEq/L Chloride (98-107) mEq/L Carbon Dioxide (21-32) mEq/L Anion Gap (5-15) BUN (7-18) mg/dL Creatinine (0.7-1.3) mg/dL Est Cr Clr Drug Dosing mL/min Estimated GFR (MDRD) (>60) mL/min BUN/Creatinine Ratio (14-18) Glucose (83-115) mg/dL Lactic Acid (0.4-2.0) mmol/L Calcium (8.5-10.1) mg/dL Magnesium (1.8-2.4) mg/dl Total Bilirubin (0.2-1.0) mg/dL AST (15-37) U/L ALT (16-63) U/L Alkaline Phosphatase (46-116) U/L Troponin I (0.00-0.056) ng/mL Total Protein (6.4-8.2) g/dl Albumin (3.4-5.0) g/dl Globulin gm/dL Albumin/Globulin Ratio (1-2) Triglycerides (<150) mg/dL Cholesterol (<200) mg/dL LDL Cholesterol Direct (<100) mg/dL HDL Cholesterol (40-59) mg/dL Urine Color Yellow (Yellow) Urine Appearance Clear (Clear) Urine pH 6.5 (5.0-8.0) Ur Specific [place] 1.015 (1.005-1.030) Urine Protein Negative (Negative) Urine Glucose (UA) Negative (Negative) Urine Ketones Negative (Negative) Urine Occult Blood Negative (Negative) Urine Nitrite Negative (Negative) Urine Bilirubin Negative (Negative) Urine Urobilinogen 0.2 (0.2-1.0) Ur Leukocyte Esterase Negative (Negative) Urine RBC 0-5 (0-5) /hpf Urine WBC 0-5 (0-5) /hpf Ur Epithelial Cells 0-5 (0-5) /hpf Urine Bacteria Few (FEW) /hpf Urine Mucus Rare (FEW) /hpf 07/05/18 07/05/18 07/05/18 Range/Units 04:20 04:20 04:20 WBC (4.23-9.07) K/mm3 RBC (4.63-6.08) M/mm3 Hgb (13.7-17.5) gm/L Hct (40.1-51.0) % MCV (79.0-92.2) fl MCH (25.7-32.2) pg MCHC (32.2-35.5) g/dl RDW Std Deviation (35.1-43.9) fL Plt Count (163-337) K/mm3 MPV (9.4-12.3) fl Neutrophils % (Manual) (40-60) % Band Neutrophils % (0-10) % Lymphocytes % (Manual) (20-40) % Atypical Lymphs % % Monocytes % (Manual) (2-10) % Eosinophils % (Manual) (0.8-7.0) % Basophils % (Manual) (0.2-1.2) Platelet Estimate RBC Morph Comment PT 13.7 H D (9.5-12.1) SECONDS INR 1.26 Puncture Site ABG pH (7.35-7.45) ABG pCO2 (35.0-45.0) mmHg ABG pO2 (80.0-100.0) mmHg ABG HCO3 (22.0-26.0) meq/L ABG O2 Saturation (96.0-97.0) % ABG Base Excess (-2-2.0) Tom Test A-a Gradient mmHg O2 Delivery Device FiO2 (21.00-100.00) % Sodium 139 (136-145) mEq/L Potassium 4.2 (3.5-5.1) mEq/L Chloride 106 (98-107) mEq/L Carbon Dioxide 23 (21-32) mEq/L Anion Gap 14.2 (5-15) BUN 35 H (7-18) mg/dL Creatinine 1.5 H (0.7-1.3) mg/dL Est Cr Clr Drug Dosing 30.70 mL/min Estimated GFR (MDRD) 45 (>60) mL/min BUN/Creatinine Ratio 23.3 H (14-18) Glucose 100 (83-115) mg/dL Lactic Acid 0.8 (0.4-2.0) mmol/L Calcium 9.2 (8.5-10.1) mg/dL Magnesium 2.1 (1.8-2.4) mg/dl Total Bilirubin 1.0 (0.2-1.0) mg/dL AST 20 (15-37) U/L ALT 14 L (16-63) U/L Alkaline Phosphatase 51 (46-116) U/L Troponin I < 0.017 (0.00-0.056) ng/mL Total Protein 6.8 (6.4-8.2) g/dl Albumin 3.5 (3.4-5.0) g/dl Globulin 3.3 gm/dL Albumin/Globulin Ratio 1.1 (1-2) Triglycerides (<150) mg/dL Cholesterol (<200) mg/dL LDL Cholesterol Direct (<100) mg/dL HDL Cholesterol (40-59) mg/dL Urine Color (Yellow) Urine Appearance (Clear) Urine pH (5.0-8.0) Ur Specific [place] (1.005-1.030) Urine Protein (Negative) Urine Glucose (UA) (Negative) Urine Ketones (Negative) Urine Occult Blood (Negative) Urine Nitrite (Negative) Urine Bilirubin (Negative) Urine Urobilinogen (0.2-1.0) Ur Leukocyte Esterase (Negative) Urine RBC (0-5) /hpf Urine WBC (0-5) /hpf Ur Epithelial Cells (0-5) /hpf Urine Bacteria (FEW) /hpf Urine Mucus (FEW) /hpf 07/05/18 Range/Units 04:20 WBC (4.23-9.07) K/mm3 RBC (4.63-6.08) M/mm3 Hgb (13.7-17.5) gm/L Hct (40.1-51.0) % MCV (79.0-92.2) fl MCH (25.7-32.2) pg MCHC (32.2-35.5) g/dl RDW Std Deviation (35.1-43.9) fL Plt Count (163-337) K/mm3 MPV (9.4-12.3) fl Neutrophils % (Manual) (40-60) % Band Neutrophils % (0-10) % Lymphocytes % (Manual) (20-40) % Atypical Lymphs % % Monocytes % (Manual) (2-10) % Eosinophils % (Manual) (0.8-7.0) % Basophils % (Manual) (0.2-1.2) Platelet Estimate RBC Morph Comment PT (9.5-12.1) SECONDS INR Puncture Site ABG pH (7.35-7.45) ABG pCO2 (35.0-45.0) mmHg ABG pO2 (80.0-100.0) mmHg ABG HCO3 (22.0-26.0) meq/L ABG O2 Saturation (96.0-97.0) % ABG Base Excess (-2-2.0) Tom Test A-a Gradient mmHg O2 Delivery Device FiO2 (21.00-100.00) % Sodium (136-145) mEq/L Potassium (3.5-5.1) mEq/L Chloride (98-107) mEq/L Carbon Dioxide (21-32) mEq/L Anion Gap (5-15) BUN (7-18) mg/dL Creatinine (0.7-1.3) mg/dL Est Cr Clr Drug Dosing mL/min Estimated GFR (MDRD) (>60) mL/min BUN/Creatinine Ratio (14-18) Glucose (83-115) mg/dL Lactic Acid (0.4-2.0) mmol/L Calcium (8.5-10.1) mg/dL Magnesium (1.8-2.4) mg/dl Total Bilirubin (0.2-1.0) mg/dL AST (15-37) U/L ALT (16-63) U/L Alkaline Phosphatase (46-116) U/L Troponin I (0.00-0.056) ng/mL Total Protein (6.4-8.2) g/dl Albumin (3.4-5.0) g/dl Globulin gm/dL Albumin/Globulin Ratio (1-2) Triglycerides 135 (<150) mg/dL Cholesterol 167 (<200) mg/dL LDL Cholesterol Direct 91 (<100) mg/dL HDL Cholesterol 58.0 (40-59) mg/dL Urine Color (Yellow) Urine Appearance (Clear) Urine pH (5.0-8.0) Ur Specific [place] (1.005-1.030) Urine Protein (Negative) Urine Glucose (UA) (Negative) Urine Ketones (Negative) Urine Occult Blood (Negative) Urine Nitrite (Negative) Urine Bilirubin (Negative) Urine Urobilinogen (0.2-1.0) Ur Leukocyte Esterase (Negative) Urine RBC (0-5) /hpf Urine WBC (0-5) /hpf Ur Epithelial Cells (0-5) /hpf Urine Bacteria (FEW) /hpf Urine Mucus (FEW) /hpf Med Orders - Current: Current Medications Acetaminophen (Tylenol) 650 mg PO Q4H PRN PRN Reason: Pain (Mild 1-3)/fever Azathioprine (Imuran) 125 mg PO DAILY [facility] Bisacodyl (Dulcolax) 5 mg PO DAILY PRN PRN Reason: Constipation Clonidine HCl (Catapres Tts-2) 0.2 mg TOP Fr@0900 [facility] Docusate Sodium (Colace) 100 mg PO BID PRN PRN Reason: Constipation Ferrous Sulfate (Slow Release Iron) 160 mg PO DAILY [facility] Miscellaneous Information (Remove Patch) 1 ea SILVANA Fr@0900 [facility] Ondansetron HCl (Zofran) 4 mg IV Q6H PRN PRN Reason: Nausea/Vomiting Atorvastatin Calcium (40 Mg Ptom) 0 each PO BEDTIME [facility] Cyclosporine 100mg/Ml Oral Solution Ptom 0 each PO Q12H [facility] Furosemide 40 Mg (Ptom) 0 each PO DAILY [facility] Lisinopril 20 Mg (Ptom) 0 each PO DAILY [facility] Amlodipine 5 Mg Tab (Ptom) 0 each PO BEDTIME [facility] Polyethylene Glycol (Miralax) 17 gm PO DAILY PRN PRN Reason: Constipation Senna/Docusate Sodium (Senna Plus) 1 tab PO BID PRN PRN Reason: Constipation Tramadol HCl (Ultram) 50 mg PO QID PRN PRN Reason: Pain Warfarin Sodium (Pharmacy To Dose - Warfarin) 0 dose .XX ASDIRECTED PRN PRN Reason: RX TO DOSE WARFARIN Discontinued Medications Non-Formulary Medication (Hydrochlorothiazide [Hydrochlorothiazide]) 25 mg PO DAILY [facility] Non-Formulary Medication (Potassium Chloride [Potassium Chloride]) 20 meq PO BID [facility] Non-Formulary Medication (Valacyclovir Hcl [Valacyclovir]) 500 mg PO BID [facility] - Exam Quality Assessment: Reports: DVT Prophylaxis General: Reports: Alert, Oriented (mostly - remains confused over time/date/year ), Cooperative, No Acute Distress HEENT: Reports: Pupils Equal, Pupils Reactive, EOMI, Mucous Membr. Moist/[place] Neck: Reports: Supple, Trachea Midline Lungs: Reports: Clear to Auscultation, Normal Respiratory Effort Cardiovascular: Reports: Regular Rate, Regular Rhythm GI/Abdominal Exam: Normal Bowel Sounds, Soft, Non-Tender, No Organomegaly, No Distention (Male) Exam: Deferred Rectal (Males) Exam: Deferred Back Exam: Reports: Normal Inspection, Full Range of Motion Extremities: Normal Range of Motion, Non-Tender, No Pedal Edema, Normal Capillary Refill, Other (Obvious deformity to right patella ) Skin: Reports: Warm, Dry, Intact Neurological: Reports: No New Focal Deficit Psy/Mental Status: Reports: Alert, Normal Affect, Normal Mood
[2018-07-05 12:59] VITALS: BP 156/86
--- NOTE | 2018-07-05 13:10 | CR ---
Chest: Portable view of the chest was obtained. Comparison: No prior chest x-ray. Heart size is normal. Tortuous thoracic aorta is seen. Lungs shows a slight parenchymal density next to the right hilum most likely due to pleural thickening being seen en face. Lungs otherwise are clear. Previous sternotomy is noted. Bony structures are grossly intact. Impression: 1. Probable pleural thickening seen en face next to the right hilum. 2. Other incidental findings. Nothing acute is suspected on portable chest x-ray. Diagnostic code #2
--- NOTE | 2018-07-05 13:10 | CT ---
Head CT Technique: Multiple axial sections through the brain were obtained. Intravenous contrast was not utilized. Comparison: Prior head CT exam of 06/22/17. Findings: Ventricles along with basal cisterns and sulci over the convexities are moderately prominent. Diminished density is noted within the periventricular and subcortical white matter compatible with mild small vessel ischemic demyelination change. No other abnormal parenchymal densities are seen. No evidence of intracranial hemorrhage. No midline shift or mass effect is seen. Atherosclerotic calcification is noted within the carotid siphon and within the vertebral vessels. Visualized paranasal sinuses are clear. There are areas of mucosal thickening seen within the right mastoid sinus. No acute calvarial abnormality is appreciated. Impression: 1. Right mastoid sinus shows mild mucosal thickening which is likely incidental if patient has no symptoms of mastoiditis. 2. Senescent change as noted above. 3. Nothing acute is appreciated on noncontrast head CT exam. Diagnostic code #2 I agree with preliminary report from [facility], finalized on 07/05/18, 7:05 AM Central Time
--- NOTE | 2018-07-05 13:10 | CR ---
Right knee: Four views of the right knee were obtained. Comparison: No prior knee exam. Knee prosthesis is seen. Components are aligned. Vascular calcification is noted. No acute bony abnormality is seen. Impression: 1. Knee prosthesis and vascular calcifications. 2. No additional abnormality is appreciated on right knee exam. Diagnostic code #2
--- NOTE | 2018-07-05 13:24 | MR ---
MR angiogram of brain Technique: T2-weighted MR angiogram study was obtained centered to the [place]. Multiple MIP images were obtained in multiple projections. Findings: There is no flow within the right internal carotid artery artery being seen. Left common carotid artery is patent. Left carotid siphon shows multiple small areas of outpouching suggesting multiple aneurysms. Aneurysms measure 5 mm or less in size. There is flow into the anterior and left middle cerebral artery from the left internal carotid artery. There is flow into the right middle cerebral artery from a patent anterior communicating artery with blood being supplied by the left carotid artery. Basilar artery is patent into the posterior cerebral arteries. Impression: 1. 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 These all measure less than 5 mm in size. 2. Occluded right carotid artery. 3. Right middle cerebral artery is supplied from the left side by a patent anterior communicating artery. Diagnostic code #5 Manager [employer] called and talked to Amos Mckeon on 07/05/18 at 1305
--- NOTE | 2018-07-05 13:31 | US ---
Carotid ultrasound: Multiple real-time images were obtained. Plaque: Diffuse plaque noted on both sides. Right internal carotid artery is occluded. Comparison: No prior carotid imaging. Findings: Velocity measurements: Right side: CCA has a peak systolic velocity of 0.31 m/s. ICA is occluded. ECA has a peak systolic velocity of 1.89 m/s. Vertebral artery has a peak systolic velocity of 0.12 m/s. ICA/CCA ratio is not obtainable. Left side: CCA has a peak systolic velocity of 0.68 m/s. ICA has a peak systolic velocity of 0.91 m/s and peak end-diastolic velocity of 0.26 m/s. ECA has a peak systolic velocity of 1.00 m/s. Vertebral artery has a peak systolic velocity of 0.45 m/s. ICA/CCA ratio is 1.3. Impression: 1. Decreased velocity measurement within the right vertebral artery. 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 2. Occluded right internal carotid artery. 3. Elevated velocity measurement within the right external carotid artery compatible with stenosis. 4. Plaque on the left side with normal velocity measurements. Diagnostic code #5 Director Of Maternity Services called and talked to Amos Mckeon on 07/05/18 at 1321
[2018-07-05] MEDS ORDERED: amLODIPine 5 MG Tab **PTOM PO SCH (21:00)
[2018-07-05] MEDS ORDERED: ATORVASTATIN CALCIUM 40 MG PO SCH (21:00)
[2018-07-07] MEDS ORDERED: cloNIDine 0.2 MG/Day Transdermal Patch TOP SCH (09:00)
== END 2018-07-05 13:43 ==
LOC: JD.ED 03:38 → JD.MS 06:01
PROVIDERS: ADMIT Family Medicine; ATTEND Family Medicine
DX: I63.9 Cerebral infarction, unspecified (principal); I65.21 Occlusion and stenosis of right carotid artery; I10 Essential (primary) hypertension; I25.10 Atherosclerotic heart disease of native coronary artery without angina pectoris; I25.2 Old myocardial infarction; I69.398 Other sequelae of cerebral infarction; H53.8 Other visual disturbances; E78.00 Pure hypercholesterolemia, unspecified; F03.90 Unspecified dementia, unspecified severity, without behavioral disturbance, psychotic disturbance, mood disturbance, and anxiety; S83.004A Unspecified dislocation of right patella, initial encounter; R79.1 Abnormal coagulation profile; C50.929 Malignant neoplasm of unspecified site of unspecified male breast; C61 Malignant neoplasm of prostate; M81.0 Age-related osteoporosis without current pathological fracture; W19.XXXA Unspecified fall, initial encounter; Z94.1 Heart transplant status; Z87.891 Personal history of nicotine dependence; Z79.01 Long term (current) use of anticoagulants; Z79.899 Other long term (current) drug therapy
CPT/HCPCS: 36415; 36600; 70450; 70544; 70551; 71045; 73564; 80053; 80061; 81001; 82803; 83605; 83735; 84484; 85007; 85027; 85610; 87040; 92610; 93005; 93306; 93880; 97162; 97165; 99285; G0378; J7500; 93010; 99283

== ENCOUNTER 2018-12-06 07:10 | Day surgery (SDC) | payer MEDICARE, BC ==
[~2018-12-06 07:10] MED LIST: Lactated Ringers 1,000 ML IV SCH; Lidocaine 1%/Sod Bicarbonate in NS 8.4% 1 ML Syringe IDERM PRN; Sodium Chloride 0.9% 10 ML Syringe FLUSH PRN
[2018-12-06] MEDS ORDERED: ceFAZolin 1 GM Vial ONE (07:29)
[2018-12-06] MEDS ORDERED: Propofol 200 MG/20 ML SDV ONE ×2 (07:30→10:47)
[2018-12-06] MEDS ORDERED: Lidocaine 1% 4 ML ONE (07:30)
[2018-12-06] MEDS ORDERED: fentaNYL 100 MCG/2 ML SDV ONE (07:30)
[2018-12-06] MEDS ORDERED: Lidocaine 1% with EPINEPHrine 1:100,000 20 ML MDV ONE ×2 (07:44→09:16)
--- NOTE | 2018-12-06 08:20 | PCM.PREANE ---
Preanesthetic Assessment - Anesthesia/Transfusion/Family Hx Anesthesia History: Prior Anesthesia Without Reaction Family History of Anesthesia Reaction: No Transfusion History: Prior Transfusion Without Reaction - Review of Systems General: No Symptoms Pulmonary: No Symptoms Cardiovascular: No Symptoms Gastrointestinal: No Symptoms Neurological: Confusion (Dementia, Memory loss, Transient Stroke June of 2018. Resolved without treatment. ), Pre-Existing Deficit Other: Reports: Easy Bleeding, Easy Bruising (On coumadin anticoagulation, last dose Tuesday12/03/18. Dr. Richards aware. PT/INR done. ) - Physical Assessment NPO Status Date: 12/05/18 NPO Status Time: 17:30 Vital Signs: Last Vital Signs Temp 36.9 C 12/06/18 07:20 Pulse 79 12/06/18 07:20 Resp 16 12/06/18 07:20 BP 127/73 12/06/18 07:20 Pulse Ox 95 12/06/18 07:20 ASA Class: 3 Mental Status: Alert & Oriented x3 Airway Class: Mallampati = 2 Dentition: Reports: Broken Tooth/Teeth, Caries Thyro-Mental Finger Breadths: 3 Mouth Opening Finger Breadths: 3 ROM/Head Extension: Full Lungs: Clear to Auscultation, Normal Respiratory Effort Cardiovascular: Regular Rate, Regular Rhythm - Lab Values: Laboratory Last Values PT 12.3 SECONDS (9.7-12.0) H 12/06/18 07:35 INR 1.14 12/06/18 07:35 - Allergies Allergies/Adverse Reactions: Allergies Allergy/AdvReac Type Severity Reaction Status Date / Time No Known Allergies Allergy Verified 12/05/18 12:24 - Acknowledgements Anesthesia Type Planned: MAC Pt an Appropriate Candidate for the Planned Anesthesia: Yes Alternatives and Risks of Anesthesia Discussed w Pt/Guardian: Yes Pt/Guardian Understands and Agrees with Anesthesia Plan: Yes PreAnesthesia Questionnaire HEENT History: Reports: Hard of Hearing, Impaired Vision Other HEENT History: bilateral hearing aides, wears eyeglasses Cardiovascular History: Reports: High Cholesterol, Hypertension, Other (See Below) Other Cardiovascular History: coronary artery arteriosclerosis, heart transplant , PFO, HI, CABG Respiratory History: Reports: Sleep Apnea, Other (See Below) Other Respiratory History: undiagnosed Gastrointestinal History: Reports: Hemorrhoids Genitourinary History: Reports: Prostate Disorder MANAGER [employer] History: Reports: None Musculoskeletal History: Reports: Back Pain, Chronic, Osteoporosis Neurological History: Reports: CVA, Other (See Below) Other Neuro History: September 2016; June 2018;multiple infarcts-vascular dementia Psychiatric History: Reports: Dementia Other Psychiatric History: Memory loss Endocrine/Metabolic History: Reports: Osteoporosis Hematologic History: Reports: Anemia, Iron Deficiency, Other (See Below) Other Hematologic History: Fe infusion 2x a week Immunologic History: Reports: Immunosuppression, Solid Organ Transplant Oncologic (Cancer) History: Reports: Basal Cell Carcinoma, Breast, Prostate, Squamous Cell Carcinoma Dermatologic History: Reports: Other (See Below) Other Dermatologic History: skin CA - Infectious Disease History Infectious Disease History: Reports: Chicken Pox, Measles, Mumps, Rheumatic Fever, Shingles (April 2018) - Past Surgical History Head Surgeries/Procedures: Reports: None HEENT Surgical History: Reports: Cataract Surgery, Tonsillectomy Cardiovascular Surgical History: Reports: Coronary Artery Bypass, Other (See Below) Other Cardiovascular Surgeries/Procedures: heart transplan 1996 Respiratory Surgical History: Reports: None GI Surgical History: Reports: Appendectomy, Cholecystectomy, Colonoscopy Female Surgical History: Reports: None Male Surgical History: Reports: None, Other (See Below) Other Male Surgeries/Procedures: right masectomy, right breast biospy Endocrine Surgical History: Reports: None Other Neurological Surgeries/Procedures: back fusion Musculoskeletal Surgical History: Reports: Knee Replacement Other Musculoskeletal Surgeries/Procedures:: bilateral total knee replacments Oncologic Surgical History: Reports: Other (See Below) Other Oncologic Surgeries/Procedures: resolved Dermatological Surgical History: Reports: Skin Biopsy - SUBSTANCE USE Smoking Status *Q: Former Smoker Recreational Drug Use History: No - HOME MEDS Home Medications: Home Meds Aspirin 81 mg PO DAILY 12/05/18 [History] Donepezil HCl [Aricept] 10 mg PO QAM 12/05/18 [History] Donepezil HCl [Aricept] 20 mg PO QPM 12/05/18 [History] Folic Acid 1 mg PO DAILY 12/05/18 [History] Furosemide 40 mg PO DAILY 12/05/18 [History] Lisinopril 20 mg PO DAILY 12/05/18 [History] Potassium Chloride 20 meq PO BID 12/05/18 [History] QUEtiapine Fumarate [Seroquel] 25 mg PO QAM 12/05/18 [History] QUEtiapine Fumarate [Seroquel] 50 mg PO QPM 12/05/18 [History] Warfarin Sodium [Coumadin] 5 mg PO ASDIRECTED 12/05/18 [History] amLODIPine [Norvasc] 5 mg PO BEDTIME 12/05/18 [History] atorvaSTATin [Lipitor] 40 mg PO DAILY 12/05/18 [History] azaTHIOprine [Imuran] 125 mg PO DAILY 12/05/18 [History] cycloSPORINE [SandIMMUNE] 100 mg PO Q12H 12/05/18 [History] hydroCHLOROthiazide [Hydrochlorothiazide] 25 mg PO DAILY 12/05/18 [History] - CURRENT (IN HOUSE) MEDS Current Meds: Current Medications Lactated Ringer's (Ringers, Lactated) 1,000 mls @ 125 mls/hr IV ASDIRECTED CYRIL Stop: 12/06/18 23:00 Lidocaine/Sodium Bicarbonate (Buffered Lidocaine 1% In Ns 8.4%) 0.25 ml IDERM ONETIME PRN PRN Reason: Prior to IV Start Stop: 12/06/18 18:00 Sodium Chloride (Saline Flush) 10 ml FLUSH ASDIRECTED PRN PRN Reason: Keep Vein Open Stop: 12/06/18 18:00 Discontinued Medications Cefazolin Sodium (Ancef) Confirm Administered Dose 2 gm .ROUTE .STK-MED ONE Stop: 12/06/18 07:30 Fentanyl (Sublimaze) Confirm Administered Dose 100 mcg .ROUTE .STK-MED ONE Stop: 12/06/18 07:31 Lidocaine HCl (Xylocaine-Mpf 1%) Confirm Administered Dose 4 mls @ as directed .ROUTE .STK-MED ONE Stop: 12/06/18 07:31 Lidocaine/Epinephrine (Xylocaine 1% With Epinephrine 1:100,000) Confirm Administered Dose 20 ml .ROUTE .STK-MED ONE Stop: 12/06/18 07:45 Propofol (Diprivan 20 Ml) Confirm Administered Dose 400 mg .ROUTE .STK-MED ONE Stop: 12/06/18 07:31
[2018-12-06] MEDS ORDERED: Bacitracin Oint 15 GM Tube ONE (09:25)
[2018-12-06] MEDS ORDERED: Lactated Ringers 1,000 ML ONE (10:28)
--- NOTE | 2018-12-06 11:10 | PCM.OPNOTE ---
- General Post-Op/Procedure Note Date of Surgery/Procedure: 12/06/18 Operative Procedure(s): excision of three lesion rt forearm under frozen section control and one lesion on the left neck Pre Op Diagnosis: scc by punch biopsy Post-Op Diagnosis: actinic keratosis Anesthesia Technique: MAC Primary Surgeon: Viktor Richards EBL in mLs: 5 Complications: None Condition: Good
--- NOTE | 2018-12-06 11:14 | PCM48HPAN ---
Post Anesthesia Note - EVALUATION WITHIN 48HRS OF ANESTHETIC Vital Signs in Normal Range: Yes Patient Participated in Evaluation: Yes Respiratory Function Stable: Yes Airway Patent: Yes Cardiovascular Function Stable: Yes Hydration Status Stable: Yes Pain Control Satisfactory: Yes Nausea and Vomiting Control Satisfactory: Yes Mental Status Recovered: Yes Vital Signs: Last Vital Signs Temp 36.9 C 12/06/18 07:20 Pulse 79 12/06/18 07:20 Resp 16 12/06/18 07:20 BP 127/73 12/06/18 07:20 Pulse Ox 95 12/06/18 07:20
[2018-12-06 11:46] VITALS: BP 130/79; PULSE 73
--- NOTE | 2018-12-07 09:59 | OR ---
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 OPERATION PERFORMED: Excision and frozen section control of a 2.5 cm lesion, left neck; a 2 cm lesion, upper right forearm, a 1.5 cm lesion, right mid forearm; and a skin lesion on the lower right forearm measuring 2.5 cm. Excision under frozen section with layered closure. FINDINGS: Findings at path report were clear margins and actinic keratosis in all 4 lesions. ANESTHESIA: Procedure done under IV sedation and local anesthetic. ESTIMATED BLOOD LOSS: About 5 mL. DESCRIPTION OF PROCEDURE: The patient was taken to the operating room, placed in a supine position, connected to the monitoring equipment, and given IV sedation. The left neck was prepped with Betadine, draped off in a sterile fashion, anesthetized with 1% Xylocaine with epinephrine. The skin lesion was elliptically incised and marked with short suture in quadrant 1, long suture in quadrant 2, and the other 2 sutures to follow consecutively in a clockwise formation. This was sent to frozen section, returned the diagnosis of clear margins, and the skin edges were undermined and brought together with interrupted 2-0 Vicryl suture and the skin with interrupted 4-0 Prolene suture. Attention was then directed to the right forearm, which was prepped with Betadine, draped off in a sterile fashion. There were 3 lesions that were felt significant; upper, middle, and lower arm. The upper arm was done first. This was anesthetized with 1% Xylocaine, elliptically incised, and quadrant marked as before and sent to pathology where again actinic keratosis was found. Margins were clear. It was then closed in layers, deep tissues with interrupted 3-0 Vicryl suture and the skin with 4-0 Prolene suture. Attention was then directed to the mid lesion and the lower forearm lesion, and they were treated in the same fashion, excised, anesthetized, excised, labeled, marked, and closed in a similar fashion. The patient tolerated the procedure and sent to recovery room in a stable condition and will be instructed on wound care and followed up in the clinic. MMODAL /[id number]
--- NOTE | 2018-12-27 09:49 | OR ---
DATE OF OPERATION: 12/06/2018 SURGEON: Viktor Richards MD ADDENDUM: Excision and frozen section control of lesion of the left neck margin and the lesion is 2.5 cm. Lesion of the upper forearm was excised under frozen section control and margin of the lesion was 2 cm. Lesion on the right mid forearm was excised under frozen section control and margin of the lesion was 1.5 cm. The skin lesion at the lower right forearm was also excised under frozen section control and the margin lesion was 2.5 cm. MMODAL /[id number]
== END 2018-12-06 12:00 | disposition home or self-care (01) ==
LOC: JD.SDS 07:10
PROVIDERS: ATTEND Surgery
DX: D04.4 Carcinoma in situ of skin of scalp and neck (principal); L90.5 Scar conditions and fibrosis of skin; L57.0 Actinic keratosis; I25.10 Atherosclerotic heart disease of native coronary artery without angina pectoris; E78.5 Hyperlipidemia, unspecified; I10 Essential (primary) hypertension; M81.0 Age-related osteoporosis without current pathological fracture; Z79.899 Other long term (current) drug therapy; Z79.82 Long term (current) use of aspirin; Z79.01 Long term (current) use of anticoagulants; Z87.891 Personal history of nicotine dependence
CPT/HCPCS: 11402; 11403; 11623; 12032; 12041; 36415; 85610; 88305; A9270; J0690; J2001; J2704; J3010; J7120; 00300